=== PATIENT | male | born 1965 ===

== ENCOUNTER 2017-12-30 10:03 | Emergency (ER) | payer OTHER, BC ==
[2017-12-30 10:29] VITALS: RESP 18; TEMP 98.6
--- NOTE | 2017-12-30 10:53 | ED PDOC ---
Arrival/HPI - General Chief Complaint: Trauma Time Seen by Provider: 12/30/17 10:49 Historian: Patient - History of Present Illness Narrative History of Present Illness (Text): 12/30/17 10:50 52yo male with PMhx of hypertension bib BLS for head and facial laceration. Patient also report right knee pain. Notes that he hit his head on a forklift this morning and sustained the laceration. also hit his knee. He is not up to date with his TD vaccination. Denies LOC, focal weakness, dizziness, nausea, any other complaint. Past Medical History - Provider Review Nursing Documentation Reviewed: Yes - Cardiac Hx Hypertension: Yes - Psychiatric Hx Substance Use: No - Anesthesia Hx Anesthesia: No Hx Anesthesia Reactions: No Hx Malignant Hyperthermia: No Family/Social History - Physician Review Nursing Documentation Reviewed: Yes Family/Social History: Unknown Family HX Smoking Status: Never Smoked Hx Alcohol Use: No Hx Substance Use: No Allergies/Home Meds Allergies/Adverse Reactions: Allergies No Known Allergies Allergy (Verified 12/30/17 10:29) Review of Systems - Physician Review All systems were reviewed & negative as marked: Yes - Review of Systems Constitutional: Normal Eyes: Normal ENT: Normal Respiratory: Normal Cardiovascular: Normal Gastrointestinal: Normal Genitourinary Male: Normal Musculoskeletal: Arthralgias (right knee pain) Skin: Normal, Laceration (Scalp/face) Neurological: Normal Endocrine: Normal Hemo/Lymphatic: Normal Psychiatric: Normal Physical Exam Vital Signs Reviewed: Yes Vital Signs Temp Pulse Resp BP Pulse Ox 12/30/17 11:00 69 18 108/65 97 12/30/17 10:03 98.6 F 73 18 106/61 100 Temperature: Afebrile Blood Pressure: Normal Pulse: Regular Respiratory Rate: Normal Appearance: Positive for: Well-Appearing, Non-Toxic, Comfortable Pain Distress: None Mental Status: Positive for: Alert and Oriented X 3 - Systems Exam Head: Present: Atraumatic, Normocephalic Pupils: Present: PERRL Extroacular Muscles: Present: EOMI Conjunctiva: Present: Normal Mouth: Present: Moist Mucous Membranes Neck: Present: Normal Range of Motion Respiratory/Chest: Present: Clear to Auscultation, Good Air Exchange. No: Respiratory Distress, Accessory Muscle Use Cardiovascular: Present: Regular Rate and Rhythm, Normal S1, S2. No: Murmurs Abdomen: Present: Normal Bowel Sounds. No: Tenderness, Distention, Peritoneal Signs Back: Present: Normal Inspection Upper Extremity: Present: Normal Inspection. No: Cyanosis, Edema Lower Extremity: Present: NORMAL PULSES, Normal ROM, Tenderness (Right medial knee). No: Edema, Swelling Neurological: Present: GCS=15, CN II-XII Intact, Speech Normal Skin: Present: Warm, Dry, Normal Color, Laceration (7.0cm laceration on frontal scalp and 4.0cm linear laceration on forehead). No: Rashes Psychiatric: Present: Alert, Oriented x 3, Normal Insight, Normal Concentration Medical Decision Making ED Course and Treatment: 12/30/17 13:05 PT was neurologically intact in ED. AAO x3. His laceration was approximated with 13polysorb interrupted sutures and 10staples. Left knee xray - Ossification noted above patella. No acute fracture Head Ct - Negative Result was DW the pt and mitchell wrap was applied. Referred to his PMD. - RAD Interpretation Radiology Orders: 12/30/17 10:56 KNEE W PATELLA RIGHT 3 VIEW [RAD] Stat 12/30/17 10:57 HEAD W/O CONTRAST [CT] Stat - Medication Orders Current Medication Orders: Discontinued Medications Acetaminophen (Tylenol 325mg Tab) 650 mg PO STAT STA Stop: 12/30/17 10:58 Last Admin: 12/30/17 11:36 Dose: 650 mg MAR Pain/Vitals Document 12/30/17 11:36 EQ (Rec: 12/30/17 11:36 EQ [facility] [id number]) Pain Reassessment Is This A Pain ReAssessment? No Sleep Is patient sleeping during reassessment? No Presence of Pain Presence of Pain Yes Cephalexin Monohydrate (Keflex) 500 mg PO STAT STA PRN Reason: Protocol Stop: 12/30/17 12:42 Tetanus/Reduced Diphtheria/Acell Pertussis (Boostrix Vaccine Inj) 0.5 ml IM .ONCE ONE Stop: 12/30/17 10:57 Last Admin: 12/30/17 11:36 Dose: 0.5 ml Immunization Registry Document 12/30/17 11:36 EQ (Rec: 12/30/17 11:37 EQ [id number]) Immunization Registry Consent Date 12/30/17 Procedure: Wound Repair - Time Performed Time Performed: 12:05 - Consent Obtained Consent obtained: Verbal - Performed by Performed by: Mid-level Provider - Indications Indication(s):: Laceration - Location Location:: Scalp, Face Shape:: Linear Dimensions Length cm: 11 - Anesthetic Technique Anesthetic Technique: Local Local/Regional Anesthetic:: Lidocaine 1% w/epi (10) - Debris Debris:: None - Irrigated Irrigated with ml of normal saline: 90 - Complexity Complexity:: Intermediate (2 layer) - Wound repair method [place]:: Tissue glue (10 yeimy placed) - Muscle repiar layer closed with Muscle repair layer closed with:: # (13), Size (6), Type (polysorb), Technique ( interrupted), Wound well approximated, Abx ointment applied, Tetanus ordered Disposition/Present on Arrival - Present on Arrival Any Indicators Present on Arrival: No History of DVT/PE: No History of Uncontrolled Diabetes: No Urinary Catheter: No History of Decub. Ulcer: No History Surgical Site Infection Following: None - Disposition Have Diagnosis and Disposition been Completed?: Yes Diagnosis: Laceration, Knee sprain Disposition: HOME/ ROUTINE Disposition Time: 13:05 Patient Plan: Discharge Patient Problems: Current Active Problems Problem Status Onset Knee sprain Acute Laceration Acute Condition: STABLE Discharge Instructions (ExitCare): Laceration Repair, Laceration Repair With [place] (DC) Additional Instructions: Follow up with your Doctor in 7days for staple removal Return to ED for redness, purulent discharge from wound Prescriptions: Cephalexin [Keflex] 500 mg PO TID #21 capsule Ibuprofen [Motrin Tab] 600 mg PO Q6 #20 tab Referrals: [facility] [place] [facility] [place] - Follow up with primary Forms: [employer] (Romansh)
[2017-12-30] MEDS ORDERED: TDAP Vaccine 0.5 mL Syr IM ONE (10:56)
[2017-12-30] MEDS ORDERED: LIDOCAIN/EPI 1-0.001% 10ML INJ SOL IJ ONE (10:58)
--- NOTE | 2017-12-30 12:34 | CT ---
PROCEDURE: CT HEAD WITHOUT CONTRAST. HISTORY: head injury COMPARISON: None available. TECHNIQUE: Axial computed tomography images were obtained through the head/brain without intravenous contrast. Radiation dose: Total exam DLP = 897 mGy-cm. This CT exam was performed using one or more of the following dose reduction techniques: Automated exposure control, adjustment of the mA and/or kV according to patient size, and/or use of iterative reconstruction technique. FINDINGS: HEMORRHAGE: No intracranial hemorrhage. BRAIN: No mass effect or edema. No atrophy or chronic microvascular ischemic changes. VENTRICLES: Unremarkable. No hydrocephalus. CALVARIUM: Unremarkable. PARANASAL SINUSES: Unremarkable as visualized. No significant inflammatory changes. MASTOID AIR CELLS: Unremarkable as visualized. No inflammatory changes. OTHER FINDINGS: None. IMPRESSION: No acute findings
--- NOTE | 2017-12-30 12:59 | RAD ---
PROCEDURE: Right Knee Radiographs. HISTORY: knee pain s/p trauma COMPARISON: None. FINDINGS: BONES: Normal. No fracture. JOINTS: Normal. No osteoarthritis. JOINT EFFUSION: None. OTHER FINDINGS: None. IMPRESSION: There is an ossification above the patella within the knee joint measuring 3 cm in diameter and 1 cm in thickness. This could be the result of previous trauma. The knee is otherwise unremarkable
[2017-12-30 13:22] VITALS: BP 110/68; PULSE 67; O2SAT 98
== END 2017-12-30 13:20 | disposition home or self-care (01) ==
LOC: ED 10:03
DX: S01.01XA Laceration without foreign body of scalp, initial encounter (principal); S01.81XA Laceration without foreign body of other part of head, initial encounter; S83.91XA Sprain of unspecified site of right knee, initial encounter; W22.8XXA Striking against or struck by other objects, initial encounter; I10 Essential (primary) hypertension; Z23 Encounter for immunization

== ENCOUNTER 2018-01-06 14:07 | Emergency (ER) | payer OTHER, BC ==
[2018-01-06 14:16] VITALS: TEMP 98.6; O2SAT 97
--- NOTE | 2018-01-06 14:44 | ED PDOC ---
Arrival/HPI - General Chief Complaint: Suture/Staple Removal Time Seen by Provider: 01/06/18 14:08 Historian: Patient - History of Present Illness Narrative History of Present Illness (Text): 01/06/18 14:43 52yo male with no PMhx who present to ED for yeimy removal. Magnolia was placed here on 12/30/17. He denies any purulent discharge from the wound. denies any other complaint. Past Medical History - Provider Review Nursing Documentation Reviewed: Yes - Infectious Disease Hx of Infectious Diseases: None - Cardiac Hx Hypertension: Yes - Psychiatric Hx Substance Use: No - Surgical History Hx Abdominal Aortic Aneurysm Repair: No - Anesthesia Hx Anesthesia: No Hx Anesthesia Reactions: No Hx Malignant Hyperthermia: No Family/Social History - Physician Review Nursing Documentation Reviewed: Yes Family/Social History: Unknown Family HX Smoking Status: Never Smoked Hx Alcohol Use: No Hx Substance Use: No Allergies/Home Meds Allergies/Adverse Reactions: Allergies No Known Allergies Allergy (Verified 01/06/18 14:12) Home Medications: Home Meds Medication Instructions Recorded Confirmed Lisinopril [Zestril] 20 mg PO DAILY 01/06/18 01/06/18 amLODIPine [Norvasc] 5 mg PO DAILY 01/06/18 01/06/18 Review of Systems - Physician Review All systems were reviewed & negative as marked: Yes - Review of Systems Constitutional: Normal Eyes: Normal ENT: Normal Respiratory: Normal Cardiovascular: Normal Gastrointestinal: Normal Genitourinary Male: Normal Musculoskeletal: Normal Skin: Other ([place] removal) Neurological: Normal Endocrine: Normal Hemo/Lymphatic: Normal Psychiatric: Normal Physical Exam Vital Signs Reviewed: Yes Vital Signs Temp Pulse Resp BP Pulse Ox 01/06/18 14:15 98.6 F 89 19 114/71 97 Temperature: Afebrile Blood Pressure: Normal Pulse: Regular Respiratory Rate: Normal Appearance: Positive for: Well-Appearing, Non-Toxic, Comfortable Pain Distress: None Mental Status: Positive for: Alert and Oriented X 3 - Systems Exam Head: Present: Atraumatic, Normocephalic Pupils: Present: PERRL Extroacular Muscles: Present: EOMI Conjunctiva: Present: Normal Mouth: Present: Moist Mucous Membranes Neck: Present: Normal Range of Motion Respiratory/Chest: Present: Clear to Auscultation, Good Air Exchange. No: Respiratory Distress, Accessory Muscle Use Cardiovascular: Present: Regular Rate and Rhythm, Normal S1, S2. No: Murmurs Abdomen: Present: Normal Bowel Sounds. No: Tenderness, Distention, Peritoneal Signs Back: Present: Normal Inspection Upper Extremity: Present: Normal Inspection. No: Cyanosis, Edema Lower Extremity: Present: Normal Inspection. No: Edema Neurological: Present: GCS=15, CN II-XII Intact, Speech Normal Skin: Present: Warm, Dry, Normal Color, Other (10staples noted in place on frontal scalp. No sign of infection noted). No: Rashes Psychiatric: Present: Alert, Oriented x 3, Normal Insight, Normal Concentration Medical Decision Making ED Course and Treatment: 01/06/18 14:46 10 yeimy removed without any blood loss. Edges appear well approximated. Pt advised to keep wound clean and dry. Disposition/Present on Arrival - Present on Arrival Any Indicators Present on Arrival: No History of DVT/PE: No History of Uncontrolled Diabetes: No Urinary Catheter: No History of Decub. Ulcer: No History Surgical Site Infection Following: None - Disposition Have Diagnosis and Disposition been Completed?: Yes Diagnosis: Removal of staple Disposition: HOME/ ROUTINE Disposition Time: 14:50 Patient Plan: Discharge Condition: STABLE Discharge Instructions (ExitCare): Staple Removal Additional Instructions: Keep wound clean an dry Follow up with your doctor Return to ED for any new or worsening symptoms Referrals: [facility] at [facility] [place] [Outside] - Follow up with primary Forms: [employer] ([place])
[2018-01-06 15:16] VITALS: BP 116/75; PULSE 84; RESP 18
== END 2018-01-06 15:08 | disposition home or self-care (01) ==
LOC: ED 14:07
DX: Z48.02 Encounter for removal of sutures (principal)